=== PATIENT | female | born 1975 | race Caucasian/White ===

== ENCOUNTER 2020-09-01 08:28 | Day surgery (SDC) | payer MEDICAID ==
[2020-09-01] VITALS (8 sets, daily range): BP systolic 145–160; BP diastolic 87–98
[~2020-09-01] VITALS: Ht 157.5 cm; Wt 63.5 kg
[~2020-09-01 08:28] MED LIST: ASPI-1265 PO; BUTA1TAB54 PO; CARV25TA2 PO; DOCUMENT DATE & TIME OF BETA-BLOCKER PO ONE; EZET10TA6 PO; FURO-150 PO; GABA300C PO; NITR0.4T51 SL; SIMV-45 PO; TRAM50TA2 PO; ceFAZolin 2gm in dextrose, iso 50 ML IV ONE; famotidine 20mg tablet PO ONE; ringers solution, lacted 1,000 ML IV SCH
[2020-09-01 10:53] LABS: BASOPHILS # (AUTO) 0.1 X10'3 (0-0.2); BASOPHILS % (AUTO) 1.3 % (0-1); EOSINOPHILS # (AUTO) 0.4 X10'3 (0-0.9); LYMPHOCYTES # (AUTO) 1.3 X10'3 (1.1-4.8); LYMPHOCYTES % (AUTO) 23.5 % (21-51); MEAN CORPUSCULAR HEMOGLOBIN 31.6 PG (27.0-31.0); MEAN CORPUSCULAR HGB CONC 34.1 g/dL (33.0-36.5); MEAN CORPUSCULAR VOLUME 92.9 FL (78-98); MEAN PLATELET VOLUME 7.1 FL (7.4-10.4); MONOCYTES # (AUTO) 0.4 X10'3 (0-0.9); NEUTROPHILS # (AUTO) 3.2 X10'3 (1.8-7.7); NEUTROPHILS % (AUTO) 59.2 % (42-75); PRE OP HEMATOCRIT 43.5 % (35.0-45.0); PRE OP HEMOGLOBIN 14.8 g/dL (12.0-16.0); PRE OP PLATELET COUNT 277 X10'3 (140-440); RED BLOOD COUNT 4.68 X10'6 (4.20-5.60); RED CELL DISTRIBUTION WIDTH 13.9 % (11.5-14.5)
[2020-09-01 11:13] LABS: ALBUMIN 3.9 G/DL (3.4-5.0); ALKALINE PHOSPHATASE 76 IU/L (46-116); BLOOD UREA NITROGEN 16 MG/DL (7-18); BUN/CREATININE RATIO 13.9 (6.6-38.0); CALCIUM 8.9 MG/DL (8.5-10.1); CHLORIDE 105 MMOL/L (99-107); CREATININE 1.15 MG/DL (0.40-0.90); PRE OP ALT 22 U/L (30-65); PRE OP ANION GAP 10 (8-16); PRE OP AST 25 U/L (10-37); PRE OP BILIRUB, TOTAL 0.4 MG/DL (0.0-1.0); PRE OP GLUCOSE 90 MG/DL (70-104); PRE OP SODIUM 142 MMOL/L (135-145); TOTAL CARBON DIOXIDE 26.6 MMOL/L (24-32); TOTAL PROTEIN 7.8 G/DL (6.4-8.2); eGFR 51 ML/MIN
[2020-09-01 11:14] LABS: PRE OP POTASSIUM 4.8 MMOL/L (3.4-5.1)
[2020-09-01] MEDS ORDERED: ringers solution, lacted 1,000 ML IV SCH (11:45)
[2020-09-01] MEDS ORDERED: ondansetron/PF 4mg/2ml inj IV PRN (11:45)
[2020-09-01] MEDS ORDERED: morphine 4 MG/ML inj SYRINge IV PRN (11:45)
[2020-09-01] MEDS ORDERED: morphine 2 MG/ML inj. syringe IV PRN (11:45)
[2020-09-01] MEDS ORDERED: meperidine/PF 25mg/ml syringe IV PRN ×3 (11:45)
[2020-09-01] MEDS ORDERED: proCHLORperazine 10 MG/2 ml inj IV PRN (11:45)
[2020-09-01] MEDS ORDERED: BUPIVAcaine/PF 2.5mg/ml (0.25%) 10ml vial ONE (12:30)
[2020-09-01] MEDS ORDERED: midazolam 1 mg/ML 2ml injection ONE (12:33)
[2020-09-01] MEDS ORDERED: LIDOcaine 0.5% (5mg/ml) 50ml vial ONE (12:33)
[2020-09-01] MEDS ORDERED: fentaNYL/PF 50MCG/1 ML 2ML syringe ONE (12:33)
--- NOTE | 2020-09-01 13:07 | NUR ---
Received from OR via , accompanied by Anesthesiologist DR BUTTERFIELD and report given by Anesthesiolgist. PT WAKES TO VOICE, SKIN WARM AND PINK, ABLE TO WIGGLE FINGERS ON LEFT SIDE, ABLE TO WIGGLE FINGERS, NO C/O PAIN, PIV PATENT.
--- NOTE | 2020-09-01 13:40 | NUR ---
PT HAS HIGH BP. DR ERVIN NOTIFIED. NO NEW ORDERS RECEIVED. PT IS TO TAKE HOME DIURETIC WHEN SHE GETS HOME AND RESUME CARVEDILOL ORDERED.
--- NOTE | 2020-09-01 14:11 | NUR ---
PT MEETS DISCHARGE CRITERIA. PT IS AWAKE, ALERT, LEFT FINGERS WARM, PINK AND MOVING, ICE SENT HOME WITH PT, IV DISCONTINUED, DISCHARGE INSTRUCTIONS REVIEWED WITH PT AND WRITTEN INSTRUCTIONS SENT WITH PT.
== END 2020-09-01 14:07 | disposition home or self-care (01) ==
LOC: PRE-OP 08:28 → PAS 14:07
PROVIDERS: ATTEND Orthopaedic Surgery Hand Surgery
DX: G56.02 Carpal tunnel syndrome, left upper limb (principal); Z20.822 Contact with and (suspected) exposure to COVID-19; I10 Essential (primary) hypertension; Z86.73 Personal history of transient ischemic attack (TIA), and cerebral infarction without residual deficits; Z87.891 Personal history of nicotine dependence; Z79.899 Other long term (current) drug therapy; Z88.6 Allergy status to analgesic agent; Z88.8 Allergy status to other drugs, medicaments and biological substances; Z98.890 Other specified postprocedural states
CPT/HCPCS: 36415; 64721; 80053; 85025; 87426; J2001; J2175; J2250; J2405; J3010; J3490; A4215; J7120